=== PATIENT | female | born 1945 | race Caucasian/White ===

== ENCOUNTER 2022-03-10 15:48 | Outpatient (CLI) | payer MEDICARE, OTHER | END 2022-03-10 15:49 | disposition home or self-care (01) | LOC: NAV RAD 15:48 | DX: R05.9 Cough, unspecified (principal) | CPT/HCPCS: 71046 ==

== ENCOUNTER 2023-04-05 11:48 | Emergency (ER) | payer MEDICARE, OTHER ==
[~2023-04-05 11:48] MED LIST: Iopamidol 370 76% 100 ML VIAL ONE
[2023-04-05] MEDS ORDERED: Pantoprazole 40 MG VIAL ONE (12:52)
[2023-04-05] MEDS ORDERED: Ondansetron PF 4 MG/2 ML Vial ONE (12:52)
[2023-04-05] MEDS ORDERED: Sodium Chloride 0.9% 1,000 ML ONE (12:52)
[2023-04-05 13:15] LABS: #Basophils 0.1 thou/uL (0.0-0.2); #Eosinphils 0.2 thou/uL (0.0-0.7); #Lymphocytes 2.6 thou/uL (1.20-3.40); #Monocytes 0.5 thou/uL (0.11-0.59); #Neutrophils 4.9 thou/uL (1.40-6.50); %Basophils 1.3 % (0.0-1.0); %Eosinophils 2.1 % (0.0-10.0); %Lymphocytes 31.3 % (21.0-51.0); %Monocytes 5.8 % (0.0-10.0); %Neutrophils 59.5 % (42.0-75.0); Hematocrit 46.1 % (36.0-47.0); Hemoglobin 14.9 g/dL (12.0-16.0); Mean Corpuscular HGB CONC 32.4 g/dL (32.0-36.0); Mean Corpuscular Hemoglobin 29.8 pg (27.0-31.0); Mean Platelet Volume 6.8 fL (7.4-10.4); Platelet Count 232 10x3/uL (130-400); Red Blood Cell (RBC) Count 5.01 mill/uL (4.20-5.40); White Blood Cell (WBC) Count 8.3 10x3/uL (4.8-10.8)
[2023-04-05 13:35] LABS: Bilirubin Negative (Negative); Blood, Urine Trace (Negative); Clarity Clear (Clear); Glucose, Urine (Dipstick) Negative (Negative); Ketone, Urine Trace mg/dL (Negative); Leukocyte Negative (Negative); Nitrite Negative (Negative); Protein, Urine (Dipstick) Negative (Neg-Trace); Urobilinogen 0.2 mg/dL (Less than 2); pH, Urine 5.5 (5.0-9.0)
[2023-04-05 13:37] LABS: Specific Gravity, Urine 1.023 (1.002-1.036)
[2023-04-05 13:38] LABS: Bacteria/HPF Rare-Few HPF (None Seen); CAUTI Indications for Culture Dysuria,urgency,freq; RBC/HPF 0-3 HPF (0-3); Squamous Epithelial None Seen HPF (0-3); WBC/HPF None Seen HPF (0-3)
[2023-04-05 13:39] LABS: Calcium Oxalate Crystals 1+ HPF (None Seen)
[2023-04-05 13:40] LABS: Urine Culture Reflex No No
[2023-04-05 13:43] LABS: ALT (SGPT) 14 U/L (8-55); AST (SGOT) 17 U/L (5-34); Albumin 4.3 g/dL (3.4-4.8); Alkaline Phosphatase 78 U/L (40-110); Anion Gap 14 mmol/L (10-20); BUN (Urea Nitrogen) 12 mg/dL (9.8-20.1); Bilirubin, Total 0.4 mg/dL (0.2-1.2); Calc. Creatinine Clearance 0 mL/min (70-130); Calcium 10.1 mg/dL (7.8-10.44); Carbon Dioxide 25 mmol/L (23-31); Chloride 108 mmol/L (98-107); Estimated GFR 56; Globulin 2.9 g/dL (2.4-3.5); Glucose 89 mg/dL (83-110); Lipase 23 U/L (8-78); Potassium 3.9 mmol/L (3.5-5.1); Protein, Total 7.2 g/dL (5.8-8.1); Sodium 143 mmol/L (136-145)
== END 2023-04-05 15:47 | disposition home or self-care (01) ==
LOC: NAV ERS 11:48
DX: K20.90 Esophagitis, unspecified without bleeding (principal); K80.20 Calculus of gallbladder without cholecystitis without obstruction; I10 Essential (primary) hypertension; E78.00 Pure hypercholesterolemia, unspecified; K21.9 Gastro-esophageal reflux disease without esophagitis; Z79.899 Other long term (current) drug therapy
CPT/HCPCS: 36415; 74177; 80053; 81001; 83690; 85025; 96361; 96374; 96375; C9113; J2405; J7050; Q9967

== ENCOUNTER 2023-08-11 03:09 | Emergency (ER) | payer MEDICARE, OTHER | END 2023-08-11 04:01 | disposition short-term general hospital (02) | LOC: NAV ERS 03:09 | DX: M79.605 Pain in left leg (principal); K21.9 Gastro-esophageal reflux disease without esophagitis; E87.1 Hypo-osmolality and hyponatremia; Z79.01 Long term (current) use of anticoagulants | CPT/HCPCS: 99284 ==

== ENCOUNTER 2025-03-11 07:31 | Emergency (ER) | payer MEDICARE, OTHER | END 2025-03-11 08:10 | disposition home or self-care (01) | LOC: NAV ERS 07:31 | DX: Z76.0 Encounter for issue of repeat prescription (principal); F32.A Depression, unspecified; K21.9 Gastro-esophageal reflux disease without esophagitis; E78.00 Pure hypercholesterolemia, unspecified; Z79.899 Other long term (current) drug therapy | CPT/HCPCS: 99281 ==

== ENCOUNTER 2025-03-27 08:26 | Emergency (ER) | payer MEDICARE, OTHER ==
[2025-03-27] MEDS ORDERED: Acetaminophen 500 MG TAB ONE (09:17)
== END 2025-03-27 09:50 | disposition home or self-care (01) ==
LOC: NAV ERS 08:26
DX: S62.316A Displaced fracture of base of fifth metacarpal bone, right hand, initial encounter for closed fracture (principal); K21.9 Gastro-esophageal reflux disease without esophagitis; Z79.899 Other long term (current) drug therapy; Z79.890 Hormone replacement therapy; W18.30XA Fall on same level, unspecified, initial encounter
CPT/HCPCS: 26605